=== PATIENT | male | born 1965 | race Caucasian/White ===

== ENCOUNTER 2016-09-16 05:34 | Day surgery (SDC) | payer OTHER ==
[2016-09-16] VITALS (18 sets, daily range): BP systolic 117–160; BP diastolic 80–97; PULSE 77–99; RESP 10–18; O2SAT 93–97
[~2016-09-16] VITALS: Ht 170.2 cm; Wt 113.0 kg
[2016-09-16] MEDS: Lactated Ringer's 1,000 ML IV SCH ×3 (05:00→07:30)
[~2016-09-16 05:34] MED LIST: ASPI-973 PO; CETI10CA PO; IBUP800T28 PO; LISI1TAB11 PO; METF500T4 PO; PARO20TA57 PO; atorvastatin; vitamin d3
[2016-09-16] MEDS ORDERED: fentaNYL-PF 50 mCg/mL 2 mL Inj ONE (05:35)
[2016-09-16] MEDS ORDERED: Propofol 10,000 mCg/mL 20 mL Inj ONE (05:35)
[2016-09-16] MEDS ORDERED: Dexamethasone 4 mg/mL Inj ONE (05:35)
[2016-09-16] MEDS ORDERED: Succinylcholine Chloride 20 mg/mL 5 mL Inj ONE (05:35)
[2016-09-16] MEDS ORDERED: Ondansetron 2 mg/mL 2 mL Inj ONE (05:35)
[2016-09-16] MEDS ORDERED: Insulin LISPRO 300 Unit/3 mL Inj ONE (07:23)
--- NOTE | 2016-09-16 07:26 | PCM.HPANE ---
Patient Data Surgeon Admitting Provider: Attending Provider:Jeramie Jovel MD Primary Care Physician:Cassandra Other Provider:Anaid Kumaringham Anesthesia Reason for Visit Deviated Septum, Chronic Sinusitis, Hypertrophy Of Ht/WT & BMI Height (Feet): 5 Height (Inches): 7 Weight (Kilograms): 115.8 Body Mass Index 40.00 Allergies Coded Allergies: No Known Allergies (Unverified , 09/10/16) Past Anesthesia History Anesthesia History: Denies:: Abnormal Airway, Anesthesia Reactions, Difficult Intubation, Fam Anesthesia Reaction Diabetes History Hx Diabetes?: Yes Glycemic Control: Oral Medication Current Bedside Blood Glucose: 187 MRSA MRSA: No Medications Blood Thinner: Aspirin Hypertension Medication: Yes Home Meds Incl Beta Lauro: No Reported Medications Cetirizine HCl (Zyrtec)10 Mg [id number] Mg PO HS #30 CAPSULE Ref 0 09/11/16 [vitamin d3] No Conflict Check1,000 Iu DAILY 09/10/16 Metformin 500 Mg [id number] Mg PO DAILY Ref 0 09/10/16 Lisinopril / HCTZ 20-25 mg 1 Each Tablet1 Each PO DAILY Ref 0 09/10/16 Paroxetine (Paxil)20 Mg [id number] Mg PO DAILY Ref 0 09/10/16 Ibuprofen 800 Mg [id number] Mg PO TID PRN For Pain Ref 0 09/10/16 [atorvastatin] No Conflict Check20 Mg DAILY 09/10/16 Aspirin 81 Mg [id number] Mg PO DAILY Ref 0 09/10/16 History History of ENT Problems?: Yes HEENT History: Positive for:: Sinus Problem (current admission problem) Denies:: Abnormal Airway Cataracts Difficult Intubation Dysphagia Glaucoma Hearing Problem TMJ Denture Type: None Teeth Condition: Within Normal Limits Hx of Heart Problems?: Yes Cardiovascular History: Positive for:: Hypertension Denies:: AICD Abdominal Aortic Aneurism Atrial Fibrillation Cardiac Surgery Chest Pain Heart Murmur Irregular Heartbeat Pacemaker Peripheral Vascular Hx of Respiratory Problem?: Yes Respiratory History: Positive for:: Use of C-PAP Machine ([place]+/ hx of UPPP) Denies:: Asthma COPD Emphysema Oxygen Administration Pneumonia Tuberculosis Hx Neurologic Problems?: No Neurological History: Denies:: Alzheimer's Disease CVA Dementia Headaches Multiple Sclerosis Parkinson's Disease Seizures TIA Hx of GI Problems?: No Hx of Problems?: No Genitourinary History: Denies:: Kidney Stones Urinary Tract Infection Male Hx: Denies:: Prostate Problems Scrotal Mass Testicular Surgery Skin History: Denies:: History Skin Disorders? Pressure Ulcers Hx Musculoskeletal Problems?: Yes Musculoskeletal History: Positive for:: Back Injury (chronic back) Osteoarthritis (knees, back) Denies:: Fibromyalgia Joint Replacement Musculoskeletal Trauma (past hx CTR) Systemic Lupus Hx of Psycho/Social Problems?: Yes Psycho Social History: Positive for:: Hx Depression Hx Surgeries?: Yes (UPPP, carpal tunnel release) Hx Any Other Health Problems?: Yes Other History: Denies:: Cancer Thyroid Disease History Blood Transfusions: Positive for:: Accept Blood Products? Denies:: Blood Transfusions Hx Diabetes: YesBedside Blood Glucose: 187 Hx Alcohol Use: YesAlcoholic Drinks Per Day: 2-6 drinks weeklyHx Substance Use : NoHave You Smoked inLast 12 mo: No Stop/Bang P-Blood Pressure: treated: Yes B- Body Mass Index > 35 kg/m2: Yes A- Age over 50: No N- Neck Large Circumference: Yes G- Gender Male: Yes [place] Risk Assessment: High Risk, =/>3 Yes [place] Category 2: Yes Risk Assessment Category Category 1A: Patient has history of documented sleep apnea, and HAS NOT received any narcotic, sedative or anesthesia administration during this stay. Category 1B: Patient has history of documented sleep apnea, and HAS received any narcotic , sedative or anesthesia administration during this stay Category 2: Patient has SUSPECTED Obstructive Sleep Apnea, and HAS received any narcotic , sedative or anesthesia administration during this stay. Category 3: Patient has SUSPECTED Obstructive Sleep Apnea and HAS NOT received narcotic, sedative or anesthesia administration during this stay. Category 4: Outpatient in Procedural Areas with known sleep apnea or who screen positive for High Risk via the STOP/BANG questionnaire. Exam Exam Vital Signs Vital Signs Date Time Temp Pulse Resp B/P Pulse Ox O2 Delivery O2 Flow Rate FiO2 09/16/16 06:01 CPAP/BIPAP 09/16/16 06:01 36.4 80 16 141/94 96 Room Air General Appearance: Alert HEENT/AIRWAY: MP 2 Lungs: Clear to Auscultation Heart: Exam Unremarkable Meds/Labs/Diagnostics Admission Meds Current Medications Lactated Ringer's (Lr) 1,000 ml @ 120 mls/hr Q8H20M IV Last administered on t 05:48; Start 09/16/16 at 05:00; Stop 09/16/16 at 13:19 Bedside Blood Glucose: 187 Plan Impression Patient chart reviewed, patient interviewed and anesthestic plan with risks, benefits, and alternatives discussed, and informed consent obtained. NPO per Anesth. Guidelines: Yes ASA Physical Status: ASA2 Mod Systemic Disease Anesthetic Support Modalities: [place] Scope Anesthetic Plan: GA Bene/Risks/Altern/Consents: Yes HP Complete Prior to Induction: Yes Jarod Shabazz MD September 16, 2016 07:26
[2016-09-16] MEDS ORDERED: Lactated Ringer's 1,000 ML IV SCH (07:27)
[2016-09-16] MEDS ORDERED: Lactated Ringer's 500 ML IV PRN (07:27)
[2016-09-16] MEDS ORDERED: fentaNYL-PF 50 mCg/mL 2 mL Inj IVPUSH PRN (07:30)
[2016-09-16] MEDS ORDERED: HYDROmorphone 1 mg/mL Inj IVPUSH PRN (07:30)
[2016-09-16] MEDS ORDERED: Ondansetron 2 mg/mL 2 mL Inj IVPUSH PRN (07:30)
[2016-09-16] MEDS ORDERED: EPHEDrine Sulfate 50 mg/mL Inj IVPUSH PRN (07:30)
[2016-09-16] MEDS: Dexamethasone Inj 20 MG in Dextrose 5%-Pha MIX 50 ML IV SCH (07:30)
[2016-09-16] MEDS ORDERED: Dexamethasone 4 mg/mL Inj IVPUSH PRN (07:30)
[2016-09-16] MEDS ORDERED: Insulin LISPRO 300 Unit/3 mL Inj SUBQ ONE (07:30)
[2016-09-16] MEDS ORDERED: MetoCLOpramide 5 mg/mL 2 mL Inj IVPUSH PRN ×2 (07:30→10:25)
[2016-09-16] MEDS ORDERED: Phenylephrine 10,000 mCg/mL Inj IVPUSH PRN (07:30)
[2016-09-16] MEDS ORDERED: Lidocaine MPF 2%-Epi 1:200,000 10 mL Inj INFILTRATE ONE (07:47)
--- NOTE | 2016-09-16 08:38 | PCM.ANEP1 ---
Post Anesthesia Phase 1 PACU Phase 1 Assessment Vital Signs PACU 36.3 sat 97 hr96 160/91 rr12 awake, no complications Vital Signs Date Time Temp Pulse Resp B/P Pulse Ox O2 Delivery O2 Flow Rate FiO2 09/16/16 06:01 CPAP/BIPAP 09/16/16 06:01 36.4 80 16 141/94 96 Room Air Anesthetic Administered: GA Level of Alertness: Awake, talking TAYLOR's with Equal Strength: Yes Pain: No Nausea or Vomiting: No Oxygen Delivery: Room Air Lungs: Clear to Auscultation Dermatome Level: Full Sensation Complications: No Follow up Care: No Jarod Shabazz MD September 16, 2016 08:38
--- NOTE | 2016-09-16 09:06 | OP ---
[address] [address] OPERATIVE REPORT PATIENT: LUCI LOWE : 1965 MR#: [id number] ADMIT: 09/16/2016 JOB ID: [id number] DATE OF SURGERY: 09/16/2016 SURGEON: Jeramie Jovel MD PREOPERATIVE DIAGNOSIS(ES): 1. Nasal obstruction with septal deviation. 2. Turbinate hypertrophy. 3. Chronic and recurrent acute maxillary ethmoid sinusitis. 4. Right arslan bullosa. POSTOPERATIVE DIAGNOSIS(ES): 1. Nasal obstruction with septal deviation. 2. Turbinate hypertrophy. 3. Chronic and recurrent acute maxillary ethmoid sinusitis. 4. Right arslan bullosa. PROCEDURE: 1. Septoplasty submucosal treatment of inferior turbinates. 2. Right arslan bullosa resection. 3. Bilateral mid to anterior ethmoid sinusotomies and maxillary sinusotomies. HISTORY AND INDICATIONS: A 51-year-old gentleman with obstructive sleep apnea, chronic nasal obstruction with leftward septal deviation and inferior turbinate hypertrophy. Also with recurrent acute sinusitis with a large arslan bullosa on the right. PROCEDURE AND FINDINGS: The patient taken to the operative room and placed in supine position on the operating table. General endotracheal anesthesia was induced. The nose was inspected, the uncinate process, right middle turbinate, and inferior turbinates were injected with 2% lidocaine with 1:100,000 epinephrine. The nose was packed with Afrin on cotton. The septum was injected with the same local. After allowing adequate time for local anesthetic the packing was removed. With a 15 blade a left anterior septal incision was made. With a Master elevator the mucoperichondrium and periosteum were elevated. The quadrangular cartilage was dislocated from its perpendicular attachments to the perpendicular plate of the ethmoid, the vomer, and maxillary crest. With a Carlton stripper and Elsie the obstructing portions of the bony septum and the mid nose were removed. The quadrangular cartilage was then able to be positioned in the midline. The anterior incision was closed with interrupted 4-0 chromic. Septum is mattressed with multiple interrupted 4-0 plain. Silastic splints were fashioned, placed on either side of the septum and secured with a through and through 4-0 nylon. Under endoscopic control with a 0-degree scope, an incision is made on the inferior border of the right middle turbinate. With the microdebrider the lateral portion of the arslan bullosa was removed. The right uncinate process was then taken down with the microdebrider and backbiting instrument. The ethmoidal bulla was entered and the anterior ethmoids are open. The maxillary natural ostium was enlarged anteriorly and inferiorly with a backbiter and microdebrider. Once all areas were adequately opened a folded Merocel sponge was placed in the middle meatus. The same procedure was carried out on the left, but less ethmoid work is done on this side, but once again uncinate process was taken down. The maxillary ostium was enlarged. Again a Merocel pack is placed. Stab incision made on the inferior turbinates at the tip bilaterally. With a Master elevator the turbinate bone was exposed. Portions were removed with a Elsie. Further submucosal treatment of the turbinates undertaken with the suction cautery. Merocel packs were placed to compress the septum and the inferior turbinates. The patient is awake and extubated in the operating room and returned to recovery room in good condition. ESTIMATED BLOOD LOSS: 100 cc PATHOLOGIC SPECIMENS: None. DRAINS: None. COMPLICATIONS: None.
[2016-09-16] MEDS: HYDROcodone-APAP 5-325 mg Tablet PO PRN ×2 (13:06→14:41)
[2016-09-17] VITALS (10 sets, daily range): BP systolic 133–144; BP diastolic 86–89; PULSE 72–89; RESP 18; O2SAT 94–99
[2016-09-17] MEDS ORDERED: Glucose 40% Oral Gel 15 Gm Tube PO PRN (00:05)
[2016-09-17] MEDS: Insulin LISPRO Low-Dose Scale SUBQ SCH ×3 (01:44→12:35)
[2016-09-17] MEDS: HYDROcodone-APAP 5-325 mg Tablet PO PRN (02:13)
[2016-09-17] MEDS ORDERED: PARoxetine 20 mg Tablet PO SCH (08:30)
[2016-09-17] MEDS ORDERED: Sodium Chloride NAS 45 mL Spray NASAL PRN (12:45)
== END 2016-09-17 14:00 | disposition home or self-care (01) ==
LOC: SAS 05:34 → OSC 09:41 → SAS 09-17 14:00
PROVIDERS: ATTEND Otolaryngology Facial Plastic Surgery
DX: J34.2 Deviated nasal septum (principal); J34.3 Hypertrophy of nasal turbinates; J32.0 Chronic maxillary sinusitis; J32.2 Chronic ethmoidal sinusitis; J34.9 Unspecified disorder of nose and nasal sinuses; I10 Essential (primary) hypertension; G47.33 Obstructive sleep apnea (adult) (pediatric); E11.9 Type 2 diabetes mellitus without complications; M19.90 Unspecified osteoarthritis, unspecified site; Z79.84 Long term (current) use of oral hypoglycemic drugs; Z79.82 Long term (current) use of aspirin; F32.9 Major depressive disorder, single episode, unspecified
CPT/HCPCS: 30520; 31240; 31255; 31256; J0330; J1100; J1815; J2250; J2405; J3010; J7120